=== PATIENT | male | born 1995 | race American Indian/Alaskan Native ===

== ENCOUNTER 2024-09-06 10:21 | Emergency (ER) | payer SELFPAY ==
[2024-09-06] MEDS: Famotidine 20 MG Tab PO ONE ×2 (10:42→10:43)
[2024-09-06] MEDS: predniSONE 20 MG Tab PO ONE (10:43)
[2024-09-06] MEDS: diphenhydrAMINE 50 MG Cap PO ONE (10:43)
== END 2024-09-06 11:13 | disposition home or self-care (01) ==
LOC: DL.ED 10:21
DX: T78.40XA Allergy, unspecified, initial encounter (principal); Z91.048 Other nonmedicinal substance allergy status
CPT/HCPCS: 99283; A9270; J7512; Q0163